=== PATIENT | male | born 1995 | race Caucasian/White ===

== ENCOUNTER → 2017-10-22 10:30 | Outpatient (CLI) | payer MEDICAID, OTHER, SELFPAY ==
--- NOTE | 2017-10-22 10:16 | DI.REPORT_ITS ---
SYMPTOM/DIAGNOSIS: PAIN LEFT HAND: There is no evidence of an acute fracture or dislocation.
== END ==
PROVIDERS: Visit Provider Orthopaedic Surgery
DX: M79.642 Pain in left hand (principal)
CPT/HCPCS: 73130

== ENCOUNTER 2018-06-30 13:15 | Emergency (ER) | payer MEDICAID, SELFPAY ==
[2018-06-30 13:21] VITALS: BP 135/85; PULSE 76; RESP 12; O2SAT 98
--- NOTE | 2018-06-30 13:31 | W.ED.GENAD ---
Discharge Plan Disposition Patient Disposition: HOME Condition: Good Discharge Details Chief Complaint: RespSymp Clinical Impression: Bronchitis Primary Care Provider: Gabe Palomino ED Provider: Ulises Godfrey Home Meds and New Rx's Prescriptions: New prednisone 50 MG tablet 50 mg PO DAILY Qty: 5 RF: 0 No Action cetirizine [Zyrtec] 10 MG tablet 10 mg PO DAILY Qty: 90 RF: 3 clonidine HCl 0.2 MG tablet 0.2 mg PO DAILY Qty: 90 RF: 3 ibuprofen 200 MG capsule 600 mg PO BID PRNRF: 0 pantoprazole [Protonix] 20 MG tablet,delayed release (DR/EC) 20 mg PO DAILY RF: 0 fluoxetine [Prozac] 20 mg Capsule 20 mg PO DAILY RF: 0 Discharge Instructions Instructions: Acute Bronchitis (ED) Additional Instructions: Please use the inhaler as directed, take 2 puffs every 6 hours for the next 2-3 days as needed. Please take the prednisone steroid as directed. If you did not have any improvement of your symptoms after 5-7 days please come back for reassessment. If you notice any worsening of your symptoms, or any new symptoms such as vomiting, diarrhea, fever, chills, shortness of breath, chest pain, numbness, weakness, or fainting , please return immediately to the emergency department for reevaluation. Please follow up with your primary care provider as soon as possible for reassessment and reevaluation. As always, it was a pleasure participating in your medical care today. Referrals: Gabe Palomino. [Primary Care Provider] - Medical Decision Making This is a pleasant 23-year-old male who presents for evaluation of cough for the last 3-4 days, mild fatigue. Does have history of tobacco abuse and asthma. He has not been taking a breathing treatments at home. Physical exam demonstrates clear lung sounds, notably reassuring vital signs with no tachypnea, tachycardia, or hypoxemia. Lung sounds are clear, no evidence of respiratory distress whatsoever. No abdominal tenderness, no recent foreign travel or antibiotic use. Diarrhea is very mild and limited in nature, no risk factors for Legionella's. Bedside portable limited ultrasound demonstrated no concerning lung findings, no evidence of pneumothorax, B-lines, or pneumonia both clinically or objectively on ultrasound. With a reassuring physical exam, negative ultrasound, I do feel that the patient be discharged home. Feel his symptoms are secondary to mild to moderate bronchitis, no indication for antibiotics at this time. Will give prednisone, inhaler and a spacer. I have extensively reviewed the treatment plan and discharge instructions with the patient. I have addressed all patient concerns at this time. The patient was made aware of what symptoms to monitor for that would warrant a return to the emergency department. Discussed the plan with the patient, they demonstrate verbal understanding and agreement with our assessment and plan at this time. HPI General Date/Time Provider Initiated Documentation: 06/30/18 13:16. HPI Narrative: This is a pleasant 23-year-old male with a past medical history of asthma and tobacco abuse who presents for 3-4 days of cough. He states that he also has symptoms of generalized malaise and fatigue. He does admit to occasional productivity of his cough with some brown and white sputum. He denies any significant fever, bedside temperature check was 97 ?F. He does admit to occasional loose stool having roughly 3 episodes of loose stool per day. He denies any melena, abdominal pain, nausea,, hematochezia, vomiting. He denies any other complaints at this time. He denies any neck pain or headache. He denies any numbness tingling or weakness. He denies any work with air conditioners, water towers, or large bodies of water. He denies any other sick contacts. He has no other complaints at this time. No other modifying factors. Related Data Home Medications Medication Instructions Recorded Confirmed cetirizine [Zyrtec] 10 mg PO DAILY #90 tab 02/11/17 06/30/18 clonidine HCl 0.2 mg PO DAILY #90 tab-cap 02/11/17 06/30/18 pantoprazole [Protonix] 20 mg PO DAILY 07/25/17 06/30/18 ibuprofen 600 mg PO BID PRN 10/22/17 06/30/18 fluoxetine [Prozac] 20 mg PO DAILY 06/30/18 06/30/18 prednisone 50 mg PO DAILY #5 tab 06/30/18 Previous Rx's Medication Instructions Recorded cetirizine [Zyrtec] 10 mg PO DAILY #90 tab 02/11/17 clonidine HCl 0.2 mg PO DAILY #90 tab-cap 02/11/17 prednisone 50 mg PO DAILY #5 tab 06/30/18 Allergies Allergy/AdvReac Type Severity Reaction Status Date / Time No Known Allergies Allergy Unverified 06/30/18 13:24 General Stated Complaint: RespSymp BREANA: 3 Review of Systems Review of Systems All systems reviewed & are unremarkable except as noted in HPI and below PFSH Surgical History Adenoidectomy (~2002) Myringotomy w/ PE (pressure equalizing) tubes (~2002) Family History Mother Asthma Father No problems noted. Sister Asthma Brother Asthma Grandfather No problems noted. Grandfather No problems noted. Grandmother Asthma Grandmother No problems noted. Social History Smoking/Tobacco Use Status: Former Tobacco Use Do you feel safe at home: Yes Do you feel safe in your relationship?: Yes Exam Narrative Exam Narrative: 1.Const: Well-nourished, Well-developed, appearing stated age 2.Eyes: PERRL, no conjunctival injection, and symmetrical lids. 3.ENT: Atraumatic external nose and ears. Moist MM. Neck: Symmetric, trachea midline, No thyromegaly. 4.CVS: +S1/S2, No murmurs or gallops. Peripheral pulses 2+ and equal in all extremities. Brisk capillary refill in all extremities. 5.RESP: Unlabored respiratory effort. Clear to auscultation bilaterally. No wheezes rales or rhonchi 6.GI: Soft, Nontender/Nondistended, No hepatosplenomegaly. No guarding or rebound. 7.MSK: Normocephalic/Atraumatic, Extremities w/o deformity or ttp No cyanosis or clubbing, Normal movement of all extremities 8.Skin: Warm, Dry. No rashes or lesions. 9.Neuro: [employer] II-XII grossly intact. Sensation grossly intact, no focal neurologic deficits. 10.Psych: (AAO) x3. Appropriate mood and affect Course Vital Signs Pulse 76 06/30/18 13:21 Respiratory Rate 12 06/30/18 13:21 Blood Pressure 135/85 06/30/18 13:21 Pulse Oximetry 98 06/30/18 13:21 Pulse 76 06/30/18 13:21 Respiratory Rate 12 06/30/18 13:21 Respiratory Effort Non-Labored 06/30/18 13:23 Blood Pressure 135/85 06/30/18 13:21 Pulse Oximetry 98 06/30/18 13:21 Oxygen Delivery Method Room Air 06/30/18 13:21 Oxygen Flow Rate 0 06/30/18 13:21 Pain Level 0 06/30/18 13:21
== END 2018-06-30 13:47 | disposition home or self-care (01) ==
PROVIDERS: Emergency Provider Student in an Organized Health Care Education/Training Program; PCP Family Medicine
DX: J20.9 Acute bronchitis, unspecified (principal); Z87.891 Personal history of nicotine dependence
CPT/HCPCS: 99284

== ENCOUNTER 2018-07-12 10:36 | Emergency (ER) | payer MEDICAID, SELFPAY ==
[2018-07-12 10:43] VITALS: BP 126/70; PULSE 84; RESP 16; TEMP 36.5; O2SAT 95
== END 2018-07-12 11:01 | disposition left before discharge ==
PROVIDERS: PCP Family Medicine
DX: H92.02 Otalgia, left ear (principal); Z53.21 Procedure and treatment not carried out due to patient leaving prior to being seen by health care provider

== ENCOUNTER 2019-07-14 08:14 | Outpatient (CLI) | payer MEDICAID, SELFPAY ==
[2019-07-15 19:26] LABS: COVID-19 RT-PCR UVMMC Result Negative (Negative)
== END 2019-07-14 08:34 ==
PROVIDERS: PCP Nurse Practitioner Family; Visit Provider Nurse Practitioner Family
DX: Z11.59 Encounter for screening for other viral diseases (principal)
CPT/HCPCS: U0003

== ENCOUNTER 2020-01-21 16:55 | Emergency (ER) | payer MEDICAID, SELFPAY ==
[2020-01-21 17:01] VITALS: BP 131/74; PULSE 66; RESP 20; TEMP 37.4; O2SAT 100
--- NOTE | 2020-01-21 17:15 | DI.RAD_ITS ---
EXAM: XR KNEE RT 4V AP,LAT,TERRA,PAT CLINICAL HISTORY: s/p twisting injury, r/o fx vs effusion TECHNIQUE: COMPARISON: No exams were available for comparison FINDINGS: Four views were obtained. There is no evidence of fracture or dislocation. IMPRESSION: RADIATION DOSE DELIVERED: Total DLP
--- NOTE | 2020-01-21 17:16 | ED.GENADUL_ITS ---
Discharge Plan Disposition Patient Disposition: HOME Condition: Stable Discharge Details Clinical Impression: MCL sprain of right knee Primary Care Provider: Eri Ellis ED Provider: Myrtle Berger Home Meds and New Rx's Prescriptions: Continued pantoprazole [Protonix] 20 MG tablet,delayed release (DR/EC) 20 mg PO DAILY RF: 0 fluticasone propion-salmeterol 250-50 mcg/dose blister with device 2 inh INHALATION BID RF: 0 bisacodyl 5 mg tablet,delayed release (DR/EC) 5 mg PO PRN PRNRF: 0 albuterol sulfate [ProAir HFA] 90 mcg/actuation HFA aerosol inhaler 2 puff INHALATION PRN PRNRF: 0 lactulose 10 gram/15 mL solution 15 ml PO PRN PRNRF: 0 budesonide-formoterol [Symbicort] 160-4.5 mcg/actuation HFA aerosol inhaler 2 puff INHALATION BID RF: 0 Vyvanse 40 mg capsule 40 mg PO DAILY RF: 0 buprenorphine-naloxone [Suboxone] 8-2 mg film 2 film buccal DAILY RF: 0 Discharge Instructions Instructions: Knee Sprain (ED) Additional Instructions: Rest, ice, and elevate the affected area as much as possible. Alternate tylenol and motrin as needed and directed for pain. Call orthopedics on Thursday morning to schedule follow-up appointment for reevaluation. Return immediately to the emergency department if you develop any worsening or new concerning symptoms. Referrals: Donte Oliver MD [ [facility] STAFF PHYSICIAN] - Discharge Data Discharge Date/Time-TO BE ENTERED AT DEPARTURE: 01/21/20 19:15 Discharge Physician: Myrtle Berger Medical Decision Making 24-year-old male presents with right knee pain after twisted his knee when he fell off a ladder. He has tenderness to palpation on right medial knee and pain with valgus stress with edema along medial aspect of knee. Negative anterior and posterior drawer test. Remainder of the ligament exam limited due to significant pain. There is no deformity or open wounds. He has neurovascular intact. No tenderness to palpation of right hip or remainder of right lower leg. Patient given a dose of ibuprofen and referred for knee x-ray which is negative for acute findings. Suspicion for possible medial collateral ligament or medial meniscus injury. Patient unable to tolerate straight knee immobilizer. He was placed in Kirit wrap, hinged knee brace and given crutches for nonweightbearing. Patient placed on orthopedic follow-up list for further evaluation. Usual and customary return precautions given prior to discharge. Medical Records Medical records reviewed: Yes I reviewed the patient's medical records. Imaging Data Radiologic Study: Radiologist's impression: XR Right Knee Exam date and time: 01/21/2020 5:28 PM Age: 24 years old Clinical indication: Other: S/P twisting injury, R/O FX vs effusion TECHNIQUE: Imaging protocol: XR Right knee. Views: 4 or more views. COMPARISON: No relevant prior studies available. FINDINGS: Bones/joints: No acute fracture or subluxation is identified. Osseous mineralization is normal. The joint spaces are maintained without degenerative changes. There is no evidence for joint effusion. There is a 2.7 x 0.9 cm calcified lesion within the distal right femoral metaphysis consistent with a benign bone island. Soft tissues: Normal. IMPRESSION: No fracture or subluxation identified. HPI General Mode of arrival: ambulatory . Date/Time Provider Initiated Documentation: 01/21/20 17:00 . Limitations to Documentation: no limitations . Information obtained by: patient . HPI Narrative: Patient is a 24-year-old male who presents with right knee pain after twisting injury while working on a roof just prior to arrival. Patient states he was standing on a ladder when his foot got caught on the step and he bent it backwards and felt a pop. He is mainly complaining of pain in his right medial knee. He states his foot feels tingly b ut denies any injury to his right hip, ankle or foot. He has not taken any medication for pain. He states he is unable to bear weight on his right leg due to the pain in his knee. Related Data Home Medications Medication Instructions Recorded Confirmed pantoprazole [Protonix] 20 mg PO DAILY 07/25/17 01/21/20 Vyvanse 40 mg PO DAILY 01/21/20 01/21/20 albuterol sulfate [ProAir HFA] 2 puff INHALATION PRN PRN 01/21/20 01/21/20 bisacodyl 5 mg PO PRN PRN 01/21/20 01/21/20 budesonide-formoterol [Symbicort] 2 puff INHALATION BID 01/21/20 01/21/20 buprenorphine-naloxone [Suboxone] 2 film BUCCAL DAILY 01/21/20 01/21/20 fluticasone propion-salmeterol 2 inh INHALATION BID 01/21/20 01/21/20 lactulose 15 ml PO PRN PRN 01/21/20 01/21/20 Allergies Allergy/AdvReac Type Severity Reaction Status Date / Time No Known Allergies Allergy Unverified 01/21/20 17:05 General Stated Complaint: Orthopedic BREANA: 3 Review of Systems All systems reviewed & are unremarkable except as noted in HPI and below Constitutional Constitutional: Reports as per HPI, Denies chills and Denies fever(s) Eyes Eyes: Denies blurry vision ENT Ears, Nose, Mouth, and Throat: Denies dizziness, Denies sore throat and Denies throat swelling Cardiovascular Cardiovascular: Denies chest pain and Denies dyspnea Respiratory Respiratory: Denies cough and Denies dyspnea Gastrointestinal Gastrointestinal: Denies abdominal pain, Denies diarrhea and Denies vomiting Genitourinary Genitourinary: Denies hematuria and Denies dysuria Musculoskeletal Musculoskeletal: Denies back pain and Denies numbness Integumentary/Breasts Skin/Breast: Denies lesions and Denies rash Neurologic Neurologic: Denies dizziness, Denies localized weakness and Denies numbness Allergic/Immunologic Allergic/Immunologic: Denies throat swelling [facility] Medical History (Updated 01/21/20 @ 19:03 by Myrtle Berger DO) ADHD (attention deficit hyperactivity disorder) (08/17/14) Surgical History Adenoidectomy (~2002) Myringotomy w/ PE (pressure equalizing) tubes (~2002) Family History Mother Asthma Father No problems noted. Sister Asthma Brother Asthma Grandfather No problems noted. Grandfather No problems noted. Grandmother Asthma Grandmother No problems noted. Social History Smoking/Tobacco Use Status: Former Tobacco Use Smoking risk assessment performed?: Yes Alcohol Intake: never Drug use: Current Sobriety Substance use type: former substance user Do you feel safe at home: Yes Do you feel safe in your relationship?: Yes Exam Const General: cooperative, healthy appearing and no acute distress HENMT Head: normal to inspection Mouth: oral mucosae normal Eyes General: appearance normal, both eyes and all related structures Neck Neck: normal visual inspection Resp Effort & Inspection: normal respiratory effort and able to speak in complete sentences Cardio Rate: regular rate Skin General skin exam: no rashes or lesions noted Neuro General: patient alert, patient awake and patient oriented x3 Motor: muscle tone normal throughout Extrem Other: Tenderness to palpation and edema of right medial knee. There is pain with valgus stress. Full ligament exam of knee limited due to pain. Negative anterior and posterior drawer test. No tenderness to palpation of right hip, ankle or foot. Right DP/PT pulses intact. Psych Appearance: grossly normal Affect: normal affect Course Vital Signs Vital signs: Vital Signs Temperature 99.3 F 01/21/20 17:01 Pulse 66 01/21/20 17:01 Respiratory Rate 20 01/21/20 17:01 Blood Pressure 131/74 01/21/20 17:01 Pulse Oximetry 100 01/21/20 17:01 Temperature 99.3 F 01/21/20 17:01 Temperature Source Skin 01/21/20 17:01 Pulse 66 01/21/20 17:01 Respiratory Rate 20 01/21/20 17:01 Respiratory Effort Non-Labored 01/21/20 17:10 Blood Pressure 131/74 01/21/20 17:01 Blood Pressure Position Sitting 01/21/20 17:01 Pulse Oximetry 100 01/21/20 17:01 Oxygen Delivery Method Room Air 01/21/20 17:01 Oxygen Flow Rate 0 01/21/20 17:01
--- NOTE | 2020-01-21 18:17 | DI.VRAD_ITS ---
PROCEDURE INFORMATION: Exam: XR Right Knee Exam date and time: 01/21/2020 5:28 PM Age: 24 years old Clinical indication: Other: S/P twisting injury, R/O FX vs effusion TECHNIQUE: Imaging protocol: XR Right knee. Views: 4 or more views. COMPARISON: No relevant prior studies available. FINDINGS: Bones/joints: No acute fracture or subluxation is identified. Osseous mineralization is normal. The joint spaces are maintained without degenerative changes. There is no evidence for joint effusion. There is a 2.7 x 0.9 cm calcified lesion within the distal right femoral metaphysis consistent with a benign bone island. Soft tissues: Normal. IMPRESSION: No fracture or subluxation identified. Dictated and Authenticated by: Marcell Mas MD. Ordering:PRATEEK Iraheta MD
[2020-01-21] MEDS: Ibuprofen 600 MG TAB PO (18:38)
== END 2020-01-21 19:15 | disposition home or self-care (01) ==
PROVIDERS: Emergency Provider Physician Assistant; PCP Nurse Practitioner Family
DX: S83.411A Sprain of medial collateral ligament of right knee, initial encounter (principal); W11.XXXA Fall on and from ladder, initial encounter; R20.2 Paresthesia of skin
CPT/HCPCS: 29505; 99283; 73564; E0114

== ENCOUNTER 2020-08-18 21:29 | Emergency (ER) | payer MEDICAID, SELFPAY ==
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
--- NOTE | 2020-08-18 21:30 | DI.CT_ITS ---
Exam(s) CT HEAD CERVICAL SPINE WO EXAM: CT HEAD CERVICAL SPINE WO COMPARISON: No exams were available for comparison FINDINGS: CT examination of the cervical spine was performed without contrast administration. There is a mild cervical kyphosis which may reflect muscle spasm. There is no evidence of acute cervical spine fracture or dislocation. Intervertebral disc spaces are well maintained. Tracheolaryngeal structures appear intact. No cervical mass or adenopathy. Noncontrast cranial CT was performed. Ventricular system is normal in appearance. No evidence of acute intracranial hemorrhage, mass effect, or midline shift. No calvarial fracture. The orbital and temporal bone structures appear intact. Visualized mastoid air cells are clear. There is partial opacification of ethmoid air cells bilatera lly which is probably chronic. IMPRESSION: No evidence of acute cervical spine injury. No evidence of acute intracranial injury. RADIATION DOSE DELIVERED: 1,425.75mGy.cm Total DLP 1,425.75mGy.cm Total DLP DATA REPOSITORY: All CT scans at this facility are submitted to the National Radiology Data Registry (NRDR) Dose Index Registry (DIR) with the [employer] (ACR). RADIATION OPTIMIZATION: All CT scans at this facility use at least one of these dose optimization te chniques: automated exposure control; mA and/or kV adjustment per patient size (includes targeted exa ms where dose is matched to clinical indication); or iterative reconstruction.
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
[2020-08-18 21:39] VITALS: BP 115/65; PULSE 103; RESP 16; TEMP 37.3
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
[2020-08-18] MEDS: Ibuprofen 800 MG TAB PO (21:52)
[2020-08-18] MEDS: Acetaminophen 500 MG TAB 1000 MG PO (21:52)
[2020-08-18 22:24] VITALS: BP 117/67; PULSE 87; RESP 16; TEMP 37.2; O2SAT 100
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
[2020-08-18 23:28] VITALS: BP 114/71; PULSE 95; RESP 14; TEMP 37; O2SAT 98
== END 2020-08-18 23:30 | disposition home or self-care (01) ==
PROVIDERS: Emergency Provider Student in an Organized Health Care Education/Training Program; PCP Nurse Practitioner Family
DX: S06.0X1A Concussion with loss of consciousness of 30 minutes or less, initial encounter (principal); S20.221A Contusion of right back wall of thorax, initial encounter; S60.222A Contusion of left hand, initial encounter; S80.02XA Contusion of left knee, initial encounter; V18.0XXA Pedal cycle driver injured in noncollision transport accident in nontraffic accident, initial encounter; Y93.55 Activity, bike riding
CPT/HCPCS: 73562; 87040; 87635; 99284; 70450; 72125; 72128; 72131; 73130; 99285

== ENCOUNTER 2021-05-03 12:30 | Emergency (ER) | payer MEDICAID, SELFPAY ==
[2021-05-03 12:41] VITALS: BP 139/75; PULSE 104; RESP 18; TEMP 36.8; O2SAT 95
--- NOTE | 2021-05-03 13:10 | W.ED.GENAD ---
Discharge Plan Disposition Patient Disposition: HOME Condition: Stable Discharge Details Clinical Impression: Asthma, Cough Primary Care Provider: None,None ED Provider: Beverly Acuña Home Meds and New Rx's Prescriptions: New prednisone 20 mg tablet 40 mg PO DAILY 5 Days Qty: 10 0RF benzonatate 100 mg capsule 100 mg PO BID-TID PRN (Reason: cough) Qty: 14 0RF Rx Instructions: Take 1 tablet up to 3 times daily as needed for cough No Action albuterol sulfate [ProAir HFA] 90 mcg/actuation HFA aerosol inhaler 2 puff INHALATION PRN PRN0RF Label Comments: INHALE 2 PUFFS BY MOUTH EVERY 6 HOURS PRF WHEEZE lactulose 10 gram/15 mL solution 15 ml PO PRN PRN0RF budesonide-formoterol [Symbicort] 160-4.5 mcg/actuation HFA aerosol inhaler 2 puff INHALATION BID 0RF Label Comments: INHALE 2 PUFFS BY MOUTH TWICE DAILY buprenorphine-naloxone [Suboxone] 8-2 mg film 2 film buccal DAILY 0RF Label Comments: DISSOLVE 2 FILMS BUCCALLY ONCE DAILY quetiapine 200 mg tablet 200 mg PO BID 0RF Label Comments: TAKE ONE TABLET BY MOUTH ONCE DAILY pantoprazole 40 mg tablet,delayed release (DR/EC) 40 mg PO DAILY 0RF Label Comments: TAKE 1 TABLET BY MOUTH EVERY DAY Discharge Instructions Instructions: Asthma (ED) Additional Instructions: At this time it appears that you are having an asthma exacerbation. However we cannot rule out pneumonia or other pathology. You have opted to leave prior to obtaining your chest x-ray. Covid swab is pending at this time. Use the albuterol inhaler 1 or 2 puffs every 4-6 hours as needed for wheezing. Use the prednisone as directed. Follow up with primary care provider in 3-5 days. Return to ED sooner if any worsening shortness of breath, fever or concerns. Increase oral fluids. Stand Alone Forms: Work Release Medical Decision Making 25-year-old male presents to the ER with chief complaint of cough, wheezing and shortness of breath which is worsened over the last week. Patient reports he just got out of senior living and was on a week long course of prednisone which he finished approximately a week ago. He reports now the shortness of breath and cough is worse. He reports trouble sleeping. He does have scattered wheezes bilaterally on exam, he reports having 3 negative home Covid tests. Over the last couple days. He reports productive cough with brown sputum. He does admit to daily smoking. He denies any drugs or alcohol. He has a past medical history of asthma, anxiety, PTSD and ADHD he does use an albuterol inhaler at home he reports he is almost out of this 1450: Patient is requesting to leave, he still has not had his chest x-ray. Patient has received 60 mg prednisone and albuterol inhaler here in the department. This has improved his symptoms.. Patient informed that we cannot rule out pneumonia at this time and his Covid swab is pending. Patient was placed on care management list to establish PCP. This text was generated using [employer] system, please disregard any oddities of phrase or misspellings. HPI General Mode of arrival: ambulatory. Date/Time Provider Initiated Documentation: 05/03/21 12:52. Limitations to Documentation: no limitations. Information obtained by: patient and RN notes reviewed. HPI Narrative: 25-year-old male presents to the ER with chief complaint of cough, wheezing and shortness of breath which is worsened over the last week. Patient reports he just got out of senior living and was on a week long course of prednisone which he finished approximately a week ago. He reports now the shortness of breath and cough is worse. He reports trouble sleeping. He does have scattered wheezes bilaterally on exam, he reports having 3 negative home Covid tests. Over the last couple days. He reports productive cough with brown sputum. He does admit to daily smoking. He denies any drugs or alcohol. He has a past medical history of asthma, anxiety, PTSD and ADHD he does use an albuterol inhaler at home he reports he is almost out of this Related Data Home Medications Medication Instructions Recorded Confirmed albuterol sulfate 90 mcg/actuation 2 puff INHALATION PRN PRN 01/21/20 05/03/21 aerosol inhaler (ProAir HFA) budesonide-formoterol HFA 160 2 puff INHALATION BID 01/21/20 05/03/21 mcg-4.5 mcg/actuation aerosol inhaler (Symbicort) buprenorphine 8 mg-naloxone 2 mg 2 film BUCCAL DAILY 01/21/20 05/03/21 sublingual film (Suboxone) lactulose 10 gram/15 mL oral 15 ml PO PRN PRN 01/21/20 05/03/21 solution benzonatate 100 mg capsule 100 mg PO BID-TID PRN #14 cap 05/03/21 pantoprazole 40 mg tablet,delayed 40 mg PO DAILY 05/03/21 05/03/21 release prednisone 20 mg tablet 40 mg PO DAILY 5 Days #10 tab 05/03/21 quetiapine 200 mg tablet 200 mg PO BID 05/03/21 05/03/21 Previous Rx's Medication Instructions Recorded benzonatate 100 mg capsule 100 mg PO BID-TID PRN #14 cap 05/03/21 prednisone 20 mg tablet 40 mg PO DAILY 5 Days #10 tab 05/03/21 Allergies Allergy/AdvReac Type Severity Reaction Status Date / Time No Known Allergies Allergy Unverified 05/03/21 12:44 General Stated Complaint: RespSymp BREANA: 3 Review of Systems All systems reviewed & are unremarkable except as noted in HPI and below Cardiovascular Cardiovascular: Reports dyspnea Respiratory Respiratory: Reports cough, Denies hemoptysis, Reports dyspnea and Reports wheezing Allergic/Immunologic Allergic/Immunologic: Reports wheezing PFSH All Active Problems (Updated 05/03/21 @ 14:55 by Beverly Acuña) Fall (Acute) Concussion (Acute) Contusion (Acute) Cough (Acute) Asthma (Acute 08/17/14) Medical History ADHD (attention deficit hyperactivity disorder) (08/17/14) Surgical History Adenoidectomy (~2002) Myringotomy w/ PE (pressure equalizing) tubes (~2002) Family History Mother Asthma Father No problems noted. Sister Asthma Brother Asthma Grandfather No problems noted. Grandfather No problems noted. Grandmother Asthma Grandmother No problems noted. Social History Smoking/Tobacco Use Status: Current every day Tobacco Type: cigarettes Smoking risk assessment performed?: Yes Alcohol Intake: never Drug use: Current Sobriety Substance use type: former substance user Do you feel safe at home: Yes Do you feel safe in your relationship?: Yes Exam Narrative Exam Narrative: Constitutional: Alert and oriented x3. Appears stated age. Normal body habitus. Head: Normocephalic, no trauma. Eyes: Pupils PERRL, Red reflex noted, EOM's intact. Eyelids symmetrical without lesions, discharge, or swelling. ENT: Bilateral TM's WNL, External ear normal to inspection, no mastoid TTP, swelling, or erythema, Nasal turbinates WNL, no nasal discharge. Normal dentition, Posterior pharynx WNL, no exudate. Chest: RRR, Normal S1, S2, distal pulses intact. Resp: Scattered wheezes noted bilaterally to auscultation. Abdomen: Soft, non-distended, Normoactive bowel sounds all 4 quads. Musculoskeletal: Normal gait, 5/5 strength to all four extremities. Skin: No suspicious rashes or lesions. Capillary refill less than 2 sec. Neurologic: Cranial nerves II-XII intact. Alert and oriented x 3. Motor: No deficits noted. Sensory: Intact bilaterally all 4 extremities. Reflexes: DTR's intact bilaterally.. Hematologic/Lymphatic: No ecchymosis, no lymphadenopathy. Course Vital Signs Vital signs: Vital Signs Temperature 36.8 C 05/03/21 12:41 Pulse 104 H 05/03/21 12:41 Respiratory Rate 18 05/03/21 12:41 Blood Pressure 139/75 05/03/21 12:41 Pulse Oximetry 95 05/03/21 12:41 Temperature 36.8 C 05/03/21 12:41 Temperature Source Temporal Artery Scan 05/03/21 12:41 Pulse 104 H 05/03/21 12:41 Respiratory Rate 18 05/03/21 12:41 Respiratory Effort Non-Labored 05/03/21 12:46 Respiratory Depth Normal 05/03/21 12:46 Blood Pressure 139/75 05/03/21 12:41 Blood Pressure Position Sitting 05/03/21 12:41 Pulse Oximetry 95 05/03/21 12:41 Oxygen Delivery Method Room Air 05/03/21 12:41 Oxygen Flow Rate 0 05/03/21 12:41 Pain Level 0 05/03/21 12:41
[2021-05-03] MEDS: predniSONE 20 MG TAB 60 MG PO (13:31)
[2021-05-03] MEDS: Albuterol HFA 8 GM 60 PUFF INH IH (13:32)
[2021-05-03] MEDS: Inhaler, Assist Device 1 EACH MC (13:35)
--- NOTE | 2021-05-03 15:05 | NUR.NOTE ---
Nursing Note: PT INFO GIVEN TO CARE MANAGEMENT FOR PT TO ESTABLISH CARE AND TO BE SEEN FOR ASTHMA WITHIN A WEEK. DELIA, ED
[2021-05-03 15:10] VITALS: BP 111/72; PULSE 103; RESP 16; O2SAT 93
[2021-05-04 14:12] LABS: COVID-19 RT-PCR UVMMC Result Negative (Negative)
--- NOTE | 2021-05-09 11:51 | CMACTNOTE_ITS ---
- If Service Date Differs Date of service: 05/09/21 Time of Service: 11:51 Care Management Activity Note Stepan is seen in the ED for asthma and a cough. At the request of ED provider, CM coordinates a referral to Antonette Aleman MD, of [facility], on-call provider, to assist Stepan in obtaining a follow up appointment and in establishing care with a local PCP.
== END 2021-05-03 15:09 | disposition home or self-care (01) ==
PROVIDERS: Emergency Provider Registered Nurse Emergency
DX: J45.909 Unspecified asthma, uncomplicated (principal); R05.1 Acute cough; R06.02 Shortness of breath
CPT/HCPCS: 99283; U0003; J7512

== ENCOUNTER 2021-05-20 21:16 | Outpatient (REF) | payer MEDICAID, SELFPAY ==
[2021-05-22 12:58] LABS: COVID-19 RT-PCR UVMMC Result Negative (Negative)
== END 2021-05-20 21:17 | disposition home or self-care (01) ==
LOC: LBN 21:16
PROVIDERS: Visit Provider Nurse Practitioner Family
DX: Z20.822 Contact with and (suspected) exposure to COVID-19 (principal); R06.2 Wheezing
CPT/HCPCS: U0003